=== PATIENT | female | born 1980 | race Caucasian/White ===

== ENCOUNTER → 2017-04-09 | Outpatient (CLI) | payer BC ==
[~2017-04-09] MED LIST: ALBU18002 INH; ATEN-173 PO; ATV/1 PO; CLR10 PO; FLUT0.15 NAE; MELO7.5T5 PO; PRLSR20 PO; TOPI50TA16 PO; WLLSR/150 PO; ZNTT/150 PO
--- NOTE | 2017-04-09 15:04 | DIAGNOSTIC IMAGING REPORT ---
RIGHT KNEE 4 VIEWS HISTORY: RIGHT KNEE PAIN Right COMPARISON: None. FINDINGS: There is no fracture or dislocation. Soft tissues are unremarkable. No radiopaque foreign bodies. Cartilage spaces are maintained for age. No significant knee effusion. IMPRESSION: Unremarkable right knee. Electronically signed by: Jamaal Goff M.D. 04/09/2017 3:03 PM Dictated Date/Time: 04/09/2017 3:00 PM
== END | disposition home or self-care (01) ==
LOC: C.RDSM 14:40
PROVIDERS: ATTEND Family Medicine
DX: M25.561 Pain in right knee (principal)

== ENCOUNTER 2017-06-19 18:00 | Emergency (ER) | payer BC ==
[~2017-06-19] VITALS: Ht 165.1 cm; Wt 58.9 kg
[~2017-06-19 18:00] MED LIST changes: -FLUT0.15 NAE; -ZNTT/150 PO
[2017-06-19 18:02] VITALS: TEMP 36.6; Ht 165.1 cm; Wt 58.9 kg
--- NOTE | 2017-06-19 18:30 | EMERGENCY ROOM VISIT NOTE ---
History Report prepared by Kit: Cristopher Hernadez Under the Supervision of: Dr. Jose Del Rosario M.D. First contact with patient: 18:15 Chief Complaint: ILLNESS Stated Complaint: DIZZY,FATIGUE,SHAKEY,SOB,INTERMITTENT CHEST PAIN History of Present Illness The patient is a 36 year old female who presents to the Emergency Room with complaints of feeling generally unwell for the past couple of days. The patient described her current symptoms as feeling "loopy." She complains of feeling short of breath lately, especially while walking up stairs. This is unusual for her. She also notes feeling fatigued and shaky lately, and has had a slight headache. The patient did feel nauseous this morning, but it resolved spontaneously. She denies any blurry vision or pain or swelling in the legs. She also denies any traumatic injuries or falls lately. The patient notes that she has felt somewhat anxious lately. But denies any sources of unusual stress. Source of History: patient Onset: A couple days [employer] Position: other (Global) Timing: other (Persistent) Associated Symptoms: + SOB, + nausea, + fatigue, + weakness Review of Systems See HPI for pertinent positives & negatives. A total of 10 systems reviewed and were otherwise negative. Past Medical & Surgical Medical Problems: (1) Anxiety (2) Endometriosis (3) fibromyalgia (4) Hypoglycemia (5) Migraine Old medical records were reviewed. Nurse's notes were reviewed and I agree with. Family History FH: lung disease FHx: cancer FHx: gallbladder disease Hypertension Kidney disease Social History Smoking Status: Never Smoker Drug Use: none Marital Status: Housing Status: lives with family Occupation Status: unemployed Current/Historical Medications Scheduled Atenolol (Tenormin), 25 MG PO HS Bupropion Hcl (Wellbutrin Sr), 150 MG PO HS Fluticasone Propionate (Nasal) (Flonase Allergy Relief), 2 SPRAYS DEEDEE DAILY Topiramate (Topamax), 50 MG PO HS Scheduled PRN Albuterol Sulfate (Proair Respiclick), 1-2 PUFFS INH Q4H PRN for Shortness of Breath Loratadine (Claritin), 10 MG PO DAILY PRN for PRN Lorazepam (Ativan), 0.5-1 MG PO TID PRN for Anxiety Ranitidine (Zantac), 1 TAB PO DAILY PRN for Dyspepsia Allergies Coded Allergies: Latex1 -Allergic Contact Dermititis (Verified Allergy, Unknown, RASH, ) Sulfa Antibiotics (Verified Allergy, Unknown, SHAKING, 11/05/16) Physical Exam Vital Signs Date Time Temp Pulse Resp B/P (MAP) Pulse Ox O2 Delivery O2 Flow Rate FiO2 06/19/17 20:38 57 16 125/70 99 Room Air 06/19/17 19:30 56 16 96/59 100 Room Air 06/19/17 19:06 53 06/19/17 18:02 36.6 55 16 130/67 100 Room Air Physical Exam General: Well developed well nourished, non-ill appearing young female. Mildly anxious. in no acute distress, breathing comfortably on room air. Normal speech HEENT: Normal cephalic atraumatic. Pupils are equal round and reactive to light. Extraocular movements are intact. Oropharynx is pink with moist mucous membranes. No swelling of the mouth lips or tongue. Neck: Supple with a midline trachea. No meningeal signs or stiffness, no JVD or bruits. No Stridor. Chest: Clear to auscultation bilaterally. No wheezes or rhonchi. No increased work of breathing. Heart: regular rate and rhythm. Abdomen: Soft nontender, nondistended without rebound guarding or rigidity. Extremities: No cyanosis clubbing or edema. No calf tenderness or assymetry Spine/Back. Non tender to palpation. No CVA tenderness Skin: Good turgor without rashes. Neurologic exam: Cranial nerves two through 12 are intact. Motor and sensation are intact and symmetrical throughout. Finger to nose intact. No Pronator Drift. Medical Decision & Procedures ER Provider Diagnostic Interpretation: Radiology results as stated below per my review and radiologist interpretation: CHEST ONE VIEW PORTABLE HISTORY: Atypical CHEST PAIN COMPARISON: Chest 11/17/2014. FINDINGS: The lungs are clear. Cardiac silhouette is normal in size. No pleural effusions. No pneumothorax. IMPRESSION: No acute process. Electronically signed by: Jamaal Goff M.D. 06/19/2017 7:48 PM Laboratory Results 06/19/17 19:15 Red Blood Count 4.67, Mean Corpuscular Volume 91.9, Mean Corpuscular Hemoglobin 31.9, Mean Corpuscular Hemoglobin Concent 34.7, Mean Platelet Volume 9.4, Neutrophils (%) (Auto) 58.6, Lymphocytes (%) (Auto) 33.1, Monocytes (%) (Auto) 6.9, Eosinophils (%) (Auto) 1.0, Basophils (%) (Auto) 0.2, Neutrophils # (Auto) 4.84, Lymphocytes # (Auto) 2.73, Monocytes # (Auto) 0.57, Eosinophils # (Auto) 0.08, Basophils # (Auto) 0.02 06/19/17 19:15 Test 06/19/17 19:15 06/19/17 19:21 06/19/17 19:27 White Blood Count 8.26 K/uL (4.8-10.8) Red Blood Count 4.67 M/uL (4.2-5.4) Hemoglobin 14.9 g/dL (12.0-16.0) Hematocrit 42.9 % (37-47) Mean Corpuscular Volume 91.9 fL (80-100) Mean Corpuscular Hemoglobin 31.9 pg (25-34) Mean Corpuscular Hemoglobin Concent 34.7 g/dl (32-36) Platelet Count 238 K/uL (130-400) Mean Platelet Volume 9.4 fL (7.4-10.4) Neutrophils (%) (Auto) 58.6 % Lymphocytes (%) (Auto) 33.1 % Monocytes (%) (Auto) 6.9 % Eosinophils (%) (Auto) 1.0 % Basophils (%) (Auto) 0.2 % Neutrophils # (Auto) 4.84 K/uL (1.4-6.5) Lymphocytes # (Auto) 2.73 K/uL (1.2-3.4) Monocytes # (Auto) 0.57 K/uL (0.11-0.59) Eosinophils # (Auto) 0.08 K/uL (0-0.5) Basophils # (Auto) 0.02 K/uL (0-0.2) RDW Standard Deviation 43.6 fL (36.4-46.3) RDW Coefficient of Variation 13.0 % (11.5-14.5) Immature Granulocyte % (Auto) 0.2 % Immature Granulocyte # (Auto) 0.02 K/uL (0.00-0.02) Anion Gap 7.0 mmol/L (3-11) Est Creatinine Clear Calc Drug Dose 57.8 ml/min Estimated GFR () 66.9 Estimated GFR (Non- 57.7 BUN/Creatinine Ratio 10.9 (10-20) Calcium Level 9.2 mg/dl (8.5-10.1) Total Bilirubin 0.3 mg/dl (0.2-1) Direct Bilirubin 0.1 mg/dl (0-0.2) Aspartate Amino Transf (AST/SGOT) 15 U/L (15-37) Alanine Aminotransferase (ALT/SGPT) 23 U/L (12-78) Alkaline Phosphatase 63 U/L (45-117) Total Creatine Kinase 152 U/L (26-192) Creatine Kinase MB 0.5 ng/ml (0.5-3.6) Creatine Kinase MB Ratio 0.3 (0-3.0) Troponin I < 0.015 ng/ml (0-0.045) Total Protein 8.0 gm/dl (6.4-8.2) Albumin 4.2 gm/dl (3.4-5.0) Thyroid Stimulating Hormone (TSH) 2.070 uIu/ml (0.300-4.500) Bedside D-Dimer 347 ng/mlFEU (0-450) Bedside Troponin I < 0.030 ng/ml (0-0.045) Urine Color YELLOW Urine Appearance CLEAR (CLEAR) Urine pH 5.0 (4.5-7.5) Urine Specific [place] 1.014 (1.000-1.030) Urine Protein NEG (NEG) Urine Glucose (UA) NEG (NEG) Urine Ketones NEG (NEG) Urine Occult Blood NEG (NEG) Urine Nitrite NEG (NEG) Urine Bilirubin NEG (NEG) Urine Urobilinogen NEG (NEG) Urine Leukocyte Esterase NEG (NEG) Laboratory studies as stated above per my review. Medications Administered Medications (Trade) Dose Ordered Sig/Sanjay Route Start Time Stop Time Status Last Admin Dose Admin Sodium Chloride 1,000 ml @ 999 mls/hr Q1H1M STAT IV 06/19/17 18:51 06/19/17 19:51 DC 06/19/17 19:33 999 MLS/HR ECG Indication: SOB/dyspnea, weakness Rate (beats per minute): 50 Rhythm: sinus bradycardia Findings: RBBB (incomplete), no acute ischemic change Comparison ECG Date: 05/23/2013 Change: Rate has decreased. ED Course 1815: Past medical records reviewed. The patient was evaluated in room A9B, and a complete history and physical examination were performed. 1850: Ordered Sodium Chloride 1000 mL @ 200 mL/hr IV, Sodium Chloride 1000 mL @ 999 mL/hr IV. 2021: Upon reevaluation, the patient is feeling well. I discussed the results and treatment plan with her. She verbalized agreement of the treatment plan. The patient was discharged home. Medical Decision Differential Diagnosis includes; Anxiety, arrhythmia, pulmonary embolism, cardiac disease, electrolyte or metabolic abnormality, anemia. This patient comes in as described above. She was placed in room A9 on a court monitor. She has multiple different complaints and is is been feeling dizzy and off she's had some palpitations and some vague chest pain occasionally as well. She looks well on exam and has a normal neurologic exam. She is nontoxic and non-lethargic. IV access established and she was hydrated IV 1 L normal saline bolus. Multiple blood testing was obtained as well as an EKG and chest x-ray. EKG shows no acute ischemic changes or ectopy or cardiac biomarkers are also negative. I do not think is likely cardiac acutely. She has no significant arrhythmias seen here. D-dimer is within normal limits and a low pretest probably sitting makes PE highly unlikely. Her blood work does not suggest any acute electrode or metabolic abnormalities. She has nothing to suggest acute thyroid disease. Chest x-ray was unremarkable does not show congestive heart failure pneumonia or pneumothorax. She is not . She's not anemic. There is nothing to suggest infection. She feels okay would like to go home. I discussed this with the patient and her and they're happy with the plan. She should drink plenty of fluids and follow up with her doctor Thursday for recheck. She is slightly bradycardic but was normotensive and it may be that they need to cut back on her beta severiano it could be causing her some fatigue. She also has not been sleeping much lately neck because and some problems as well. She also has some anxiety issues and that could be contributing some as well. She was encouraged to return to ER if : worsening of symptoms, chest pain, shortness of breath, fever or chills, any new problems concerns. She is happy with the plan and discharged to home. Medication Reconcilliation Current Medication List: was personally reviewed by me Blood Pressure Screening Patient's blood pressure: Normal blood pressure Blood pressure disposition: Did not require urgent referral Impression Primary Impression: Dizziness Scribe Attestation The scribe's documentation has been prepared under my direction and personally reviewed by me in its entirety. I confirm that the note above accurately reflects all work, treatment, procedures, and medical decision making performed by me. Departure Information Dispostion Home / Self-Care Referrals No Doctor, Assigned (PCP) Forms HOME CARE DOCUMENTATION FORM, IMPORTANT VISIT INFORMATION, WORK / SCHOOL INSTRUCTIONS Patient Instructions My [facility] Additional Instructions REst Drink plenty of fluids REtrun if: worsening of symptoms, fever, chest pain, any new problems or concerns
[2017-06-19] MEDS ORDERED: SODIUM CHLORIDE 0.9% 1000ML 1,000 ML IV STA (18:51)
[2017-06-19] MEDS ORDERED: SODIUM CHLORIDE 0.9% 1000ML 1,000 ML IV ONE (18:51)
[2017-06-19] MEDS ORDERED: FLUT0.15 NAE (19:11)
[2017-06-19] MEDS ORDERED: ZNTT/150 PO (19:11)
[2017-06-19 19:26] LABS: BASO % 0.2 %; BASO ABS # 0.02 K/uL (0-0.2); COMPLETE YES; HEMATOCRIT 42.9 % (37-47); IG% 0.2 %; LYMPH % 33.1 %; LYMPH ABS # 2.73 K/uL (1.2-3.4); MEAN CELL VOLUME 91.9 fL (80-100); MEAN CORPUSCULAR HEMOGLOBIN 31.9 pg (25-34); MEAN CORPUSCULAR HGB CONC 34.7 g/dl (32-36); MEAN PLATELET VOLUME 9.4 fL (7.4-10.4); MONO % 6.9 %; NEUT % 58.6 %; PLATELET COUNT 238 K/uL (130-400); RED BLOOD COUNT 4.67 M/uL (4.2-5.4); WHITE BLOOD COUNT 8.26 K/uL (4.8-10.8)
[2017-06-19 19:37] LABS: URINE APPEARANCE CLEAR (CLEAR); URINE BILIRUBIN NEG (NEG); URINE COLOR YELLOW; URINE NITRITE NEG (NEG); URINE SPECIFIC GRAVITY 1.014 (1.000-1.030); UROBILINOGEN NEG (NEG)
[2017-06-19 19:40] LABS: POINT OF CARE TROPONIN I < 0.030 ng/ml (0-0.045)
[2017-06-19 19:41] LABS: BLOOD UREA NITROGEN 13 mg/dl (7-18); BUN/CREATININE RATIO 10.9 (10-20); CALCIUM 9.2 mg/dl (8.5-10.1); CARBON DIOXIDE 24 mmol/L (21-32); CHLORIDE 108 mmol/L (98-107); GLUCOSE 85 mg/dl (70-99); POTASSIUM 3.7 mmol/L (3.5-5.1); SODIUM 139 mmol/L (136-145)
[2017-06-19 19:43] LABS: MANUAL MICROSCOPIC REQUIRED? NO; REVIEW REQ? NO
--- NOTE | 2017-06-19 19:49 | DIAGNOSTIC IMAGING REPORT ---
CHEST ONE VIEW PORTABLE HISTORY: Atypical CHEST PAIN COMPARISON: Chest 11/17/2014. FINDINGS: The lungs are clear. Cardiac silhouette is normal in size. No pleural effusions. No pneumothorax. IMPRESSION: No acute process. Electronically signed by: Jamaal Goff M.D. 06/19/2017 7:48 PM Dictated Date/Time: 06/19/2017 7:47 PM
[2017-06-19 19:52] LABS: ALKALINE PHOSPHATASE 63 U/L (45-117); ALT/SGPT 23 U/L (12-78); AST/SGOT 15 U/L (15-37); CKMB/CK RATIO 0.3 (0-3.0)
[2017-06-19 20:38] VITALS: BP 125/70; PULSE 57; O2SAT 99
== END 2017-06-19 20:51 | disposition home or self-care (01) ==
LOC: C.EDB 18:00 → C.EDA 20:51
DX: R42 Dizziness and giddiness (principal); R00.2 Palpitations; R07.9 Chest pain, unspecified; N80.9 Endometriosis, unspecified; Z82.49 Family history of ischemic heart disease and other diseases of the circulatory system